=== PATIENT | male | born 1940 | race Caucasian/White ===

== ENCOUNTER → 2017-06-16 | Outpatient (CLI) | payer MEDICARE ==
[~2017-06-16] MED LIST: ASCO-96 PO; ASPI-496 PO; ASPI-770 PO; ATOR40TA PO; CALCIUM PO; CHLO25TA PO; CLOP75TA52 PO; LISI-170 PO; MULT-224 PO; PANT40TA3 PO; SIMV20TA3 PO; TICA90TA PO; VITAMIN C PO; VITAMIN D PO; [UNRECOGNIZED DRUG - CODE] PO; vitamin d PO
== END | disposition home or self-care (01) ==
LOC: CFH 12:59
PROVIDERS: ATTEND Nurse Practitioner Family
DX: Z13.820 Encounter for screening for osteoporosis (principal); Z12.2 Encounter for screening for malignant neoplasm of respiratory organs; M81.0 Age-related osteoporosis without current pathological fracture; I25.10 Atherosclerotic heart disease of native coronary artery without angina pectoris; J92.9 Pleural plaque without asbestos; J43.2 Centrilobular emphysema; J98.6 Disorders of diaphragm; D71 Functional disorders of polymorphonuclear neutrophils; F17.210 Nicotine dependence, cigarettes, uncomplicated
CPT/HCPCS: 77080; G0297

== ENCOUNTER 2018-08-19 13:26 | Inpatient (IN) | payer MEDICARE ==
[~2018-08-19] VITALS: Ht 185.4 cm; Wt 70.0 kg
[~2018-08-19 13:26] MED LIST changes: +ALLERGY RELIEF PO; -ASPI-770 PO; +ASPI81TA59 PO; +SIMV40TA3 PO; +TYLENOL PO
[2018-08-19 14:11] VITALS: BP 152/83
[2018-08-19] MEDS ORDERED: LACTATED RINGERS 1,000 ML IV SCH (14:19)
[2018-08-19] MEDS ORDERED: BUPIVACAINE/PF 0.5% ONE (15:21)
[2018-08-19] MEDS ORDERED: EPINEPHRINE 1 MG/ML, 1ML ONE (15:22)
[2018-08-19] MEDS ORDERED: FENTANYL PF 250 MCG/5ML ONE (15:34)
[2018-08-19] MEDS ORDERED: BUPIVACAINE/PF-EPI 0.5% 1:200K INFIL ONE (16:10)
[2018-08-19] MEDS ORDERED: SUCCINYLCHOLINE 20 MG/ML, 10ML ONE (16:16)
[2018-08-19] MEDS ORDERED: hydrALAzine 20 MG/ML, 1ML ONE ×2 (16:16)
[2018-08-19] MEDS ORDERED: CEFAZOLIN 1,000 MG ONE (16:16)
[2018-08-19] MEDS ORDERED: ROCURONIUM 10MG/ML,5ML ONE (16:16)
[2018-08-19] MEDS ORDERED: PROPOFOL 10 MG/ML, 20ML ONE (16:16)
[2018-08-19] MEDS ORDERED: NEOSTIGMINE 1 MG/ML, 10ML ONE (16:16)
[2018-08-19] MEDS ORDERED: ONDANSETRON 2MG/ML, 2ML ONE (16:16)
[2018-08-19] MEDS ORDERED: DEXAMETHASONE 4 MG/ML, 1ML ONE (16:16)
[2018-08-19] MEDS ORDERED: GLYCOPYRROLATE 0.2MG/1ML, 5ML ONE (16:16)
[2018-08-19] MEDS ORDERED: ONDANSETRON ODT 8 MG PO PRN (16:30)
[2018-08-19] MEDS ORDERED: ONDANSETRON 2MG/ML, 2ML IV PRN (16:30)
[2018-08-19] MEDS ORDERED: KETOROLAC 30 MG/1 ML IV PRN (16:30)
[2018-08-19] MEDS ORDERED: METOPROLOL 1 MG/ML, 5ML IV PRN (16:30)
[2018-08-19] MEDS ORDERED: LABETALOL 5MG/ML, 20ML IV PRN (16:30)
[2018-08-19] MEDS ORDERED: MEPERIDINE/PF 25MG/0.5ML IVPush PRN (16:30)
[2018-08-19] MEDS ORDERED: MORPHINE SULFATE 4 MG/ML, 1ML IVPush PRN (16:30)
[2018-08-19] MEDS ORDERED: hydrALAzine 20 MG/ML, 1ML IV PRN (16:30)
[2018-08-19] MEDS ORDERED: OXYcodone 5 MG/5 ML ORAL.SOL UDC PO PRN (16:30)
[2018-08-19] MEDS ORDERED: ACETAMINOPHEN 325 MG TABLET PO PRN (16:30)
[2018-08-19] MEDS ORDERED: FENTANYL PF 100 MCG/2ML ONE ×2 (17:04→17:20)
[2018-08-19] MEDS: FENTANYL PF 100 MCG/2ML IV PRN ×4 (17:05→17:45)
[2018-08-19] MEDS ORDERED: HYDROmorphone 2 MG/ML, 1ML ONE (17:08)
[2018-08-19] MEDS: HYDROmorphone 1 MG/ML, 1ML IV PRN ×2 (17:15→17:20)
[2018-08-19] MEDS ORDERED: OXYcodone 5 MG/5 ML ORAL.SOL UDC ONE (18:15)
[2018-08-20 00:12] VITALS: BP 151/83
[2018-08-20 04:28] VITALS: BP 145/82
[2018-08-20 06:59] VITALS: BP 134/69
[2018-08-20] MEDS: ASPIRIN 81 MG TABLET EC PO SCH (08:57)
[2018-08-20 08:59] VITALS: BP 147/79
[2018-08-20] MEDS ORDERED: OXYC-302 PO (09:07)
[2018-08-20] MEDS: ASCORBIC ACID 500 MG TABLET PO SCH (09:54)
[2018-08-20] MEDS: CHLORTHALIDONE 25 MG TABLET PO SCH (09:55)
[2018-08-20] MEDS: MULTIVITAMIN 1 TABLET PO SCH (09:55)
[2018-08-20] MEDS ORDERED: OXYcodone IR 5MG TABLET PO PRN (10:30)
[2018-08-20] MEDS: ACETAMINOPHEN 500 MG TABLET PO PRN ×2 (10:44→21:15)
[2018-08-20 15:39] VITALS: BP 152/75
[2018-08-20 19:17] VITALS: BP 125/63
[2018-08-20] MEDS ORDERED: SIMVASTATIN 40 MG TABLET PO SCH (21:00)
[2018-08-21 01:56] VITALS: BP 131/74
[2018-08-21] MEDS: ASPIRIN 81 MG TABLET EC PO SCH (06:42)
[2018-08-21] MEDS: ACETAMINOPHEN 500 MG TABLET PO PRN ×2 (07:28→13:40)
[2018-08-21 07:35] VITALS: BP 127/71
[2018-08-21] MEDS: MULTIVITAMIN 1 TABLET PO SCH (07:57)
[2018-08-21] MEDS: CHLORTHALIDONE 25 MG TABLET PO SCH (07:57)
[2018-08-21] MEDS: ASCORBIC ACID 500 MG TABLET PO SCH (07:57)
[2018-08-21 13:19] VITALS: BP 173/93
[2018-08-21 14:02] VITALS: BP 151/91
[2018-08-21 16:20] VITALS: BP 140/89
== END 2018-08-21 16:33 | disposition home or self-care (01) | DRG 352 ==
LOC: STAR 13:26 → 4NOR 19:30 → STAR 08-20 14:22 → 4NOR 08-20 14:22
PROVIDERS: ADMIT Surgery; ATTEND Surgery
PROC: 0YU54JZ Supplement Right Inguinal Region with Synthetic Substitute, Percutaneous Endoscopic Approach (ICD-10-PCS; principal; 2018-08-20)
PROC: 8E0W4CZ Robotic Assisted Procedure of Trunk Region, Percutaneous Endoscopic Approach (ICD-10-PCS; 2018-08-20)
DX: K40.90 Unilateral inguinal hernia, without obstruction or gangrene, not specified as recurrent (principal); E78.5 Hyperlipidemia, unspecified; I10 Essential (primary) hypertension; I25.10 Atherosclerotic heart disease of native coronary artery without angina pectoris; D71 Functional disorders of polymorphonuclear neutrophils; J43.2 Centrilobular emphysema; F17.200 Nicotine dependence, unspecified, uncomplicated; Z79.899 Other long term (current) drug therapy; Z79.82 Long term (current) use of aspirin; Z80.9 Family history of malignant neoplasm, unspecified
CPT/HCPCS: 93005; G0378; J0171; J0690; J1100; J1170; J2405; J2704; J2710; J3010; J3490; C1781; J0330; J0360

== ENCOUNTER 2019-02-10 11:58 | Outpatient (CLI) | payer MEDICARE ==
[~2019-02-10 11:58] MED LIST changes: -MULT-224 PO; +MULT-642 PO; +OXYC-302 PO; +REGADENOSON 0.4 MG/5 ML SYRINGE ONE
== END 2019-02-10 23:59 | disposition home or self-care (01) ==
LOC: CFH 11:58
PROVIDERS: ATTEND Nurse Practitioner
DX: Z01.810 Encounter for preprocedural cardiovascular examination (principal); I51.7 Cardiomegaly
CPT/HCPCS: 78452; 93017; A9502; J2785

== ENCOUNTER 2020-01-01 09:45 | Outpatient (CLI) | payer MEDICARE | END 2020-01-01 23:59 | disposition home or self-care (01) | LOC: LAB 09:45 | PROVIDERS: ATTEND Nurse Practitioner Family | DX: Z02.9 Encounter for administrative examinations, unspecified (principal) ==

== ENCOUNTER → 2020-01-01 | Outpatient (CLI) | payer MEDICARE ==
[~2020-01-01] MED LIST changes: -REGADENOSON 0.4 MG/5 ML SYRINGE ONE; +SIMV20TA19 PO; -SIMV20TA3 PO; +SIMV40TA20 PO; -SIMV40TA3 PO
== END | disposition home or self-care (01) ==
LOC: CVU 09:38
PROVIDERS: ATTEND Internal Medicine Cardiovascular Disease
DX: I08.0 Rheumatic disorders of both mitral and aortic valves (principal); I65.23 Occlusion and stenosis of bilateral carotid arteries; I63.50 Cerebral infarction due to unspecified occlusion or stenosis of unspecified cerebral artery; I10 Essential (primary) hypertension
CPT/HCPCS: 93306; 93880